=== PATIENT | female | born 1985 | race Caucasian/White ===

== ENCOUNTER 2021-02-17 05:56 | Inpatient (IN) ==
[2021-02-17] MEDS ORDERED: ONDANSETRON 4 MG/2 ML VIAL IV PRN ×2 (06:06→14:09)
[2021-02-17] MEDS ORDERED: LACTATED RINGERS 1,000 ML IV ONE ×2 (06:06→08:07)
[2021-02-17] MEDS ORDERED: MEPERIDINE 50 MG/1 ML VIAL IV PRN (06:06)
[2021-02-17 06:23] LABS: Basophils # 0.1 10*3/uL (0.0-0.2); Basophils % 0.8 % (0.0-0.8); Eosinophils # 0.3 10*3/uL (0.0-0.87); Eosinophils % 1.9 % (0.00-10.9); Hematocrit 32.5 VOL% (35.7-47.0); Hemoglobin 10.2 GM/DL (12.0-16.0); Immature Granulocytes % 1.5 %; Lymphocytes # 1.8 10*3/uL (1.4-4.0); Lymphocytes % 14.1 % (21.3-54.2); Mean Corpuscular HGB Conc 31.4 GM/DL (32-36); Mean Corpuscular Volume 90.3 FL (87-102); Mean Platelet Volume 10.7 FL (9.6-12.0); Monocytes % 6.7 % (1.7-12.7); Platelet Count 276 T/CUMM (130-400); Red Cell Distribution Width 13.8 % (9.3-17.3); White Blood Count 13.1 T/CUMM (4-12)
[2021-02-17] MEDS ORDERED: OXYTOCIN/LR 20 UNIT/1,000 ML BAG IV SCH (06:30)
[2021-02-17] MEDS: LACTATED RINGERS 1,000 ML IV SCH ×2 (06:35→08:50)
[2021-02-17 06:45] LABS: Alanine Aminotransferase 15 U/L (13-56); Albumin 2.9 G/DL (3.4-5.0); Alkaline Phosphatase 237 U/L (45-117); Aspartate Amino Transferase 16 U/L (0-37); Bilirubin,Total < 0.39 MG/DL (0.2-1.0); Blood Urea Nitrogen 7 MG/DL (7-18); Calcium 8.9 MG/DL (8.5-10.1); Carbon Dioxide 25 MMOL/L (21-32); Estimated Glom Filtration Rate 131 ML/MIN; Glucose 109 MG/DL (74-106); Osmolality,Calculated 273.7 MOS/KG (273-304); Potassium 3.7 MMOL/L (3.5-5.1); Sodium 138 MMOL/L (136-145); Total Protein 7.3 G/DL (6.4-8.2)
[2021-02-17] MEDS ORDERED: ePHEDrine 50 MG/ML VIAL IV PRN (08:07)
[2021-02-17] MEDS ORDERED: CITRIC ACID/SODIUM CITRATE 30 ML UDCUP PO ONE (08:07)
[2021-02-17] MEDS ORDERED: FAMOTIDINE 20 MG/2 ML VIAL IV ONE (08:07)
[2021-02-17] MEDS ORDERED: NALOXONE 0.4 MG/ML VIAL IV PRN (08:09)
[2021-02-17] MEDS ORDERED: ONDANSETRON 4 MG/2 ML VIAL IV ONE (08:09)
[2021-02-17] MEDS ORDERED: diphenhydrAMINE 50 MG/1 ML VIAL IV PRN ×2 (08:09)
[2021-02-17] MEDS ORDERED: PROMETHAZINE 25 MG/1 ML VIAL IM ONE (08:09)
[2021-02-17] MEDS ORDERED: hydrOXYzine HCL 25 MG/1 ML VIAL IM PRN (08:09)
[2021-02-17] MEDS ORDERED: fentaNYL 2 MCG/ROPIV 0.2% EPID 100 ML EPIDURAL SCH (08:30)
[2021-02-17] MEDS ORDERED: miSOPROStoL 200 MCG TABLET ONE (08:54)
[2021-02-17] MEDS ORDERED: TRANEXAMIC ACID 1,000 MG/10 ML VIAL ONE (08:54)
[2021-02-17] MEDS ORDERED: OXYTOCIN/LR 20 UNIT/1,000 ML BAG IV ONE ×2 (08:55→14:09)
[2021-02-17] MEDS ORDERED: METHYLERGONOVINE 0.2 MG/1 ML AMP ONE (08:55)
[2021-02-17] MEDS ORDERED: CARBOPROST TROMETHAMINE 250 MCG/ML AMP IM ONE (08:55)
[2021-02-17] MEDS ORDERED: SODIUM CHLORIDE 0.9% 1,000 ML IV PRN (09:00)
[2021-02-17 11:20] LABS: Bilirubin,Urine Negative (Negative); Blood, Urine Negative (Negative); Glucose,Urine (UA) Negative (Negative); Ketones,Urine Negative (Negative); Mucus,Urine Occasional /LPF (Occasional); Nitrite,Urine Negative (Negative); Protein,Urine Negative; RBC,Urine 3 /HPF (0-4); Urine Appearance CLEAR (Clear); Urine Color Straw (Yellow); Urine Specific Gravity 1.009 (1.001-1.035); Urine Urobilinogen < 2.0 EU/DL (0.2-1.0)
[2021-02-17] MEDS ORDERED: OXYTOCIN 10 UNIT/ML VIAL ONE (13:40)
[2021-02-17] MEDS ORDERED: OXYTOCIN/LR 30 UNIT/1,000 ML BAG IV ONE (13:41)
[2021-02-17] MEDS ORDERED: LANOLIN 50% CREAM 0.3 OZ TUBE TOP PRN (14:09)
[2021-02-17] MEDS ORDERED: MEASLES/MUMPS/RUBELLA VACCINE 0.5 ML VIAL SUBCUT ONE (14:09)
[2021-02-17] MEDS ORDERED: RHO(D) IMMUNE GLOBULIN 300 MCG SYRINGE IM ONE (14:09)
[2021-02-17] MEDS ORDERED: WITCH HAZEL PADS 100/JAR TOP PRN (14:09)
[2021-02-17] MEDS ORDERED: ACETAMINOPHEN 325 MG TABLET PO PRN (14:09)
[2021-02-17] MEDS ORDERED: DIPH/TET/ACEL PERT BOOSTER VACCINE 0.5 ML VIAL IM ONE (14:09)
[2021-02-17] MEDS ORDERED: oxyCODONE/ACETAMINOPHEN 5-325 MG TABLET PO PRN ×2 (14:09)
[2021-02-17] MEDS ORDERED: IBUPROFEN 800 MG TABLET PO PRN (14:09)
[2021-02-17] MEDS ORDERED: HYDROCORTISONE 2.5% RECTAL CREAM 30 GM TUBE TOP PRN (14:09)
[2021-02-17] MEDS ORDERED: BENZOCAINE 20%/MENTHOL 0.5% SPRAY 56 GM CAN TOP PRN (14:09)
[2021-02-17] MEDS ORDERED: BISACODYL 10 MG SUPP RECTAL PRN (14:09)
[2021-02-17 14:22] LABS: Cord Arterial Blood HCO3 25.4 MMOL/L
[2021-02-17 14:25] LABS: Cord Venous Blood HCO3 22.9 MMOL/L; Cord Venous Blood PCO2 42.1 MMHG; Cord Venous Blood PO2 24.9 MMHG
[2021-02-17] MEDS: DOCUSATE SODIUM 100 MG CAPSULE PO SCH (20:49)
[2021-02-18] MEDS: oxyCODONE/ACETAMINOPHEN 5-325 MG TABLET PO PRN ×2 (03:56→11:51)
[2021-02-18 05:34] LABS: Basophils # 0.1 10*3/uL (0.0-0.2); Basophils % 0.6 % (0.0-0.8); Eosinophils # 0.3 10*3/uL (0.0-0.87); Eosinophils % 1.5 % (0.00-10.9); Hematocrit 27.4 VOL% (35.7-47.0); Hemoglobin 8.7 GM/DL (12.0-16.0); Immature Granulocytes % 1.4 %; Immature Granulocytes Absolute 0.27 #; Lymphocytes # 2.2 10*3/uL (1.4-4.0); Lymphocytes % 11.2 % (21.3-54.2); Mean Corpuscular HGB Conc 31.8 GM/DL (32-36); Mean Corpuscular Volume 90.1 FL (87-102); Mean Platelet Volume 11.1 FL (9.6-12.0); Monocytes % 5.9 % (1.7-12.7); Neutrophils % 79.4 % (38.7-73.9); Platelet Count 228 T/CUMM (130-400); Red Blood Count 3.04 MC/CUMM (3.8-5.5); Red Cell Distribution Width 13.8 % (9.3-17.3); White Blood Count 19.7 T/CUMM (4-12)
[2021-02-18] MEDS: FERROUS SULFATE 325 MG TABLET PO SCH ×2 (08:49→20:21)
[2021-02-18] MEDS: DOCUSATE SODIUM 100 MG CAPSULE PO SCH ×2 (08:49→20:21)
[2021-02-19 07:19] VITALS: BP 132/81
[2021-02-19] MEDS: DOCUSATE SODIUM 100 MG CAPSULE PO SCH (09:15)
[2021-02-19] MEDS: FERROUS SULFATE 325 MG TABLET PO SCH (09:15)
== END 2021-02-19 12:15 | disposition home or self-care (01) | DRG 560 ==
LOC: N.LD 05:56 → N.OB 16:58
PROVIDERS: ADMIT Obstetrics & Gynecology; ATTEND Obstetrics & Gynecology

== ENCOUNTER 2022-04-09 06:41 | Inpatient (IN) ==
[2022-04-09] MEDS ORDERED: METHYLERGONOVINE 0.2 MG/1 ML AMP IM PRN (07:03)
[2022-04-09] MEDS ORDERED: OXYTOCIN/LR 20 UNIT/1,000 ML BAG IV PRN (07:03)
[2022-04-09] MEDS ORDERED: miSOPROStoL 200 MCG TABLET RECTAL PRN (07:03)
[2022-04-09] MEDS ORDERED: TRANEXAMIC ACID 1,000 MG in SODIUM CHLORIDE 0.9% 100 ML IV PRN (07:03)
[2022-04-09] MEDS ORDERED: ONDANSETRON 4 MG/2 ML VIAL IV PRN ×2 (07:03→20:01)
[2022-04-09] MEDS ORDERED: CARBOPROST TROMETHAMINE 250 MCG/ML AMP IM PRN (07:03)
[2022-04-09] MEDS ORDERED: OXYTOCIN/LR 30 UNIT/1,000 ML BAG IV PRN (07:08)
[2022-04-09] MEDS ORDERED: SODIUM CHLORIDE 0.9% 0 ML IV ONE (07:10)
[2022-04-09] MEDS ORDERED: TRANEXAMIC ACID 1,000 MG/10 ML VIAL ONE (07:10)
[2022-04-09] MEDS ORDERED: MEPERIDINE 50 MG/1 ML VIAL IV ONE (07:17)
[2022-04-09] MEDS ORDERED: LACTATED RINGERS 1,000 ML IV SCH (07:30)
[2022-04-09 07:41] LABS: Cord Venous Blood PCO2 38.4 MMHG; Cord Venous Blood PO2 34.1
[2022-04-09 07:45] LABS: Basophils # 0.1 10*3/uL (0.0-0.2); Basophils % 0.8 % (0.0-0.8); Eosinophils # 0.1 10*3/uL (0.0-0.87); Eosinophils % 0.8 % (0.00-10.9); Hematocrit 34.5 VOL% (35.7-47.0); Hemoglobin 11.1 GM/DL (12.0-16.0); Immature Granulocytes % 0.9 %; Lymphocytes # 1.3 10*3/uL (1.4-4.0); Lymphocytes % 12.5 % (21.3-54.2); Mean Corpuscular HGB Conc 32.2 GM/DL (32-36); Mean Corpuscular Volume 91.5 FL (87-102); Mean Platelet Volume 10.7 FL (9.6-12.0); Monocytes # 0.5 10*3/uL (0.11-0.8); Monocytes % 4.6 % (1.7-12.7); Neutrophils % 80.4 % (38.7-73.9); Platelet Count 211 T/CUMM (130-400); Red Blood Count 3.77 MC/CUMM (3.8-5.5); White Blood Count 10.6 T/CUMM (4-12)
[2022-04-09 08:19] LABS: Alanine Aminotransferase 10 U/L (13-56); Albumin 2.8 G/DL (3.4-5.0); Alkaline Phosphatase 172 U/L (45-117); Aspartate Amino Transferase 13 U/L (0-37); Bilirubin,Total < 0.39 MG/DL (0.20-1.00); Blood Urea Nitrogen 7 MG/DL (7-18); Calcium 8.6 MG/DL (8.5-10.1); Carbon Dioxide 20 MMOL/L (21-32); Chloride 108 MMOL/L (98-107); Glucose 95 MG/DL (74-106); Potassium 3.7 MMOL/L (3.5-5.1); Sodium 136 MMOL/L (136-145); Total Protein 6.9 G/DL (6.4-8.2)
[2022-04-09] MEDS: DOCUSATE SODIUM 100 MG CAPSULE PO SCH ×2 (10:00→21:05)
[2022-04-09] MEDS ORDERED: HYDROCORTISONE 2.5% RECTAL CREAM 30 GM TUBE TOP PRN (10:06)
[2022-04-09] MEDS ORDERED: LANOLIN 50% CREAM 0.3 OZ TUBE TOP PRN (10:06)
[2022-04-09] MEDS ORDERED: MEASLES/MUMPS/RUBELLA VACCINE 0.5 ML VIAL SUBCUT ONE (10:06)
[2022-04-09] MEDS ORDERED: WITCH HAZEL PADS 100/JAR TOP PRN (10:06)
[2022-04-09] MEDS ORDERED: BENZOCAINE 20%/MENTHOL 0.5% SPRAY 56 GM CAN TOP PRN (10:06)
[2022-04-09] MEDS ORDERED: OXYTOCIN/LR 20 UNIT/1,000 ML BAG IV ONE (10:06)
[2022-04-09] MEDS ORDERED: oxyCODONE/ACETAMINOPHEN 5-325 MG TABLET PO PRN (10:06)
[2022-04-09] MEDS ORDERED: DIPH/TET/ACEL PERT BOOSTER VACCINE 0.5 ML VIAL IM ONE (10:06)
[2022-04-09] MEDS ORDERED: RHO(D) IMMUNE GLOBULIN 300 MCG SYRINGE IM ONE (10:06)
[2022-04-09] MEDS ORDERED: BISACODYL 10 MG SUPP RECTAL PRN (10:06)
[2022-04-09] MEDS ORDERED: ACETAMINOPHEN 325 MG TABLET PO PRN (10:06)
[2022-04-09 11:58] LABS: Mucus,Urine Few /LPF (Occasional); RBC,Urine 3739 /HPF (0-4)
[2022-04-09 12:00] LABS: Bilirubin,Urine Negative (Negative); Blood, Urine Moderate mg/dL (Negative); Glucose,Urine (UA) Negative (Negative); Ketones,Urine Negative (Negative); Nitrite,Urine Negative (Negative); Protein,Urine 100 mg/dL (Negative); Urine Appearance Slightly Cloudy (Clear); Urine Color Red (Yellow)
[2022-04-09 12:01] LABS: Urine Urobilinogen 0.2 eU/dL (<2.0)
[2022-04-09 12:25] LABS: Barbiturates Screen,Urine Negative (Negative); Benzodiazepines Screen,Urine Negative (Negative); Cannabinoid Screen,Urine Negative (Negative); Opiate Screen,Urine Negative (Negative); Phencyclidine Screen,Urine Negative (Negative)
[2022-04-09] MEDS ORDERED: ONDANSETRON 4 MG/2 ML VIAL IM PRN (19:48)
[2022-04-09] MEDS: oxyCODONE/ACETAMINOPHEN 5-325 MG TABLET PO PRN (21:07)
[2022-04-10 05:44] LABS: Basophils # 0.1 10*3/uL (0.0-0.2); Basophils % 0.8 % (0.0-0.8); Eosinophils # 0.2 10*3/uL (0.0-0.87); Eosinophils % 1.6 % (0.00-10.9); Hematocrit 32.2 VOL% (35.7-47.0); Hemoglobin 10.4 GM/DL (12.0-16.0); Immature Granulocytes % 0.8 %; Lymphocytes # 2.1 10*3/uL (1.4-4.0); Lymphocytes % 16.9 % (21.3-54.2); Mean Corpuscular HGB Conc 32.3 GM/DL (32-36); Mean Platelet Volume 11.1 FL (9.6-12.0); Monocytes # 0.7 10*3/uL (0.11-0.8); Monocytes % 5.8 % (1.7-12.7); Neutrophils % 74.1 % (38.7-73.9); Platelet Count 199 T/CUMM (130-400); Red Cell Distribution Width 14.1 % (9.3-17.3); White Blood Count 12.6 T/CUMM (4-12)
[2022-04-10] MEDS: DOCUSATE SODIUM 100 MG CAPSULE PO SCH ×2 (08:04→20:21)
[2022-04-10] MEDS: oxyCODONE/ACETAMINOPHEN 5-325 MG TABLET PO PRN ×3 (08:07→20:21)
[2022-04-10] MEDS ORDERED: ONDANSETRON 4 MG TABLET PO PRN (17:32)
[2022-04-11] MEDS: DOCUSATE SODIUM 100 MG CAPSULE PO SCH (08:36)
[2022-04-11] MEDS ORDERED: MULTIVITAMIN (PRENATAL) TABLET PO SCH (09:00)
[2022-04-11 12:17] VITALS: BP 140/95
== END 2022-04-11 14:40 | disposition home or self-care (01) | DRG 560 ==
LOC: N.LD 06:41 → N.OB 10:06
PROVIDERS: ADMIT Obstetrics & Gynecology; ATTEND Obstetrics & Gynecology